=== PATIENT | male | born 1950 | race Caucasian/White ===

== ENCOUNTER 2018-07-25 11:13 | Day surgery (SDC) | payer MEDICARE ==
[2018-07-25] MEDS ORDERED: MIDAZOLAM 1 MG/ML 2 ML INJ ×2 (14:02)
[2018-07-25] MEDS ORDERED: FENTAnyl 50 MCG/ML VIAL (14:02)
== END 2018-07-25 15:56 | disposition home or self-care (01) ==
LOC: GIL 11:13
DX: Z12.11 Encounter for screening for malignant neoplasm of colon (principal); K57.30 Diverticulosis of large intestine without perforation or abscess without bleeding; E11.9 Type 2 diabetes mellitus without complications; E03.9 Hypothyroidism, unspecified; E78.5 Hyperlipidemia, unspecified
CPT/HCPCS: 45378; 82962